=== PATIENT | male | born 1965 | race Caucasian/White ===

== ENCOUNTER 2019-04-05 13:47 | Outpatient (CLI) | payer BC, OTHER | END 2019-04-05 13:48 | disposition critical access hospital (66) | LOC: EMS 13:47 | PROVIDERS: ATTEND Surgery | DX: R55 Syncope and collapse (principal); R04.0 Epistaxis; R51 Headache; R42 Dizziness and giddiness | CPT/HCPCS: A0425; A0429 ==

== ENCOUNTER 2019-04-05 14:12 | Emergency (ER) | payer BC, OTHER ==
--- NOTE | 2019-04-05 14:22 | ED Physician Documentation ---
History of Present Illness - Stated complaint Stated Complaint: SYNCOPE - Additonal information Additional information: This is a 53-year-old male who has a history of pre-hypertension, who presents with an episode of syncope. Patient states that he had a nosebleed today, he oftentimes will get nosebleeds, but this 1 is more persistent than usual. It was going on for several hours. He was walking over the sink to blow his nose and he started to feel lightheaded. His is in the room and told him to come back towards her, on his way over he crumpled to his knees and then passed out for around 4 seconds. He did not hit his head, he sounds like he slowly lowered to the ground. He denies any chest pain, shortness of breath, dark or bloody stools, fever, numbness, or weakness. He takes no blood thinners. He denies headache or head trauma. Review of Systems Constitutional: denies: Fever Eyes: denies: Loss of vision Nose: reports: Epistaxis Cardiac: denies: Chest pain / pressure Respiratory: denies: Dyspnea GI: denies: Abdominal Pain, Vomiting : denies: Dysuria Musculoskeletal: denies: Neck pain Neurologic: reports: Syncope Immunocompromised: denies: Immunocompromised PD PAST MEDICAL HISTORY - Past Medical History Cardiovascular: Hypertension - Past Surgical History Past Surgical History: Yes General: Appendectomy Ortho: Shoulder arthroplasty - Present Medications Home Medications: Ambulatory Orders Medication Instructions Recorded Confirmed Methocarbamol [Robaxin] 500 mg PO Q6H PRN #25 tablet 05/16/15 Oxycodone HCl/Acetaminophen 1 each PO Q6H PRN #20 tablet 05/16/15 [Percocet 5-325 mg Tablet] RX: Ibuprofen 600 mg PO TID #20 tablet 05/16/15 - Allergies Allergies/Adverse Reactions: Allergies Allergy/AdvReac Type Severity Reaction Status Date / Time egg Allergy Unknown Verified 04/05/19 14:25 flu vaccine Allergy Unknown Uncoded 04/05/19 14:25 - Social History Does the pt smoke?: No Smoking Status: Never smoker Does the pt drink ETOH?: Yes Does the pt have substance abuse?: No - Immunizations Immunizations are current?: Yes PD ED PE NORMAL - Vitals Vital signs reviewed: Yes - General General: Alert and oriented X 3, No acute distress - HEENT HEENT: Other (There is some crusted blood in the bilateral nares. There is no active bleeding. 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 Intervals are within normal limits. There is left ventricular hypertrophy.) - Labs Labs: Laboratory Tests 04/05/19 04/05/19 04/05/19 14:49 14:49 14:49 WBC 12.1 H RBC 5.02 Hgb 15.6 Hct 44.9 MCV 89.4 MCH 31.1 H MCHC 34.7 RDW 12.6 Plt Count 244 MPV 10.6 Neut # (Auto) 9.1 H Lymph # (Auto) 1.9 [place] # (Auto) 0.9 Eos # (Auto) 0.1 Baso # (Auto) 0.1 Absolute Nucleated RBC 0.00 Nucleated RBC % 0.0 Sodium 142 Potassium 3.7 Chloride 111 Carbon Dioxide 21 Anion Gap 10.0 BUN 26 H Creatinine 1.3 H Estimated GFR (MDRD) 58 L Glucose 168 H Calcium 9.2 Total Bilirubin 0.9 AST 72 H ALT < 10 L Alkaline Phosphatase 65 Troponin I < 0.04 Troponin I High Sens 8.3 Total Protein 7.2 Albumin 3.8 Globulin 3.4 Albumin/Globulin Ratio 1.1 Lipase 28 PD MEDICAL DECISION MAKING - ED course Complexity details: considered differential (Arrhythmia, Anemia, electrolyte abnormality, dehydration, vasovagal episode, ACS) ED course: On arrival patient is well appearing with unremarkable vital signs. EKG shows LVH without convincing signs of ischemia or dysrhythmia. Patient was placed on the monitor. Labs were drawn and pt was given a 1L NS bolus. Labs are notable for normal hemoglobin, mildly elevated creatinine, mildly elevated AST. Pt denies alcohol use and has no abdominal pain. After the IV fluids patient is feeling well, is not lightheaded, and he has had no further epistaxis. He has not had dysrhytmia while in the ED, and his syncope after becoming lightheaded while having a nosebleed makes vagal episode highly likely, with likely dehydration as well. He is neurologically intact, and had no seizure activity witnessed. I discussed that he should follow with his PCP on his lab abnormalities and his possible LVH seen on EKG. I recommended fluid hydration and avoiding activities that could be dangerous with another episode of syncope. Return precautions discussed and patient was discharged home. Departure - Departure Disposition: 01 Home, Self Care Clinical Impression: Syncope Condition: Good Instructions: ED Fainting Unkn Cause Follow-Up: Your,PCP [Other] (As soon as possible, for follow up on fainting, slightly see vated AST, left ventricular hypertrophy seen on EKG) Comments: You were seen today because you fainted. Your blood counts look okay, but you do have a slight elevation of your AST liver enzyme, your creatinine (1.3), And your EKG suggests some heart enlargement. Please follow-up with your primary care provider soon as possible on these issues. If you have chest pain, s hortness of breath, or more episodes of passing out return to the emergency department. Discharge Date/Time: 04/05/19 16:32
[2019-04-05] MEDS ORDERED: SODIUM CHLORIDE 0.9% 1,000 ML IV STA (14:37)
[2019-04-05 14:55] LABS: BASOPHILS # (AUTO) 0.1 10^3/uL (0.0-0.1); BASOPHILS % (AUTO) 0.4 %; EOSINOPHILS # (AUTO) 0.1 10^3/uL (0.0-0.7); EOSINOPHILS % (AUTO) 1.2 %; HGB - HEMOGLOBIN 15.6 g/dL (14.0-18.0); LYMPHOCYTES # (AUTO) 1.9 10^3/uL (1.5-3.5); LYMPHOCYTES % (AUTO) 15.4 %; MEAN CORPUSCULAR HEMOGLOBIN 31.1 pg (27.0-31.0); MEAN CORPUSCULAR HGB CONC 34.7 g/dL (32.0-36.0); MEAN CORPUSCULAR VOLUME 89.4 fL (80.0-94.0); MEAN PLATELET VOLUME 10.6 fL (7.4-11.4); MONOCYTES # (AUTO) 0.9 10^3/uL (0.0-1.0); MONOCYTES % (AUTO) 7.6 %; NEUTROPHILS # (AUTO) 9.1 10^3/uL (1.5-6.6); NEUTROPHILS % (AUTO) 74.7 %; PLT - PLATELET COUNT 244 10^3/uL (130-450); RED BLOOD COUNT 5.02 10^6/uL (4.70-6.10); RED CELL DISTRIBUTION WIDTH 12.6 % (12.0-15.0); WHITE BLOOD COUNT 12.1 x10^3/uL (4.8-10.8)
--- NOTE | 2019-04-05 14:58 | XRAY Report ---
Reason: Chest Pain Procedure Date: 04/05/2019 Accession Number: [id number] / [id number] Procedure: XR - Chest 1 View X-Ray CPT Code: 19631 FULL RESULT: EXAM: CHEST RADIOGRAPHY EXAM DATE: 04/05/2019 02:48 PM. CLINICAL HISTORY: Chest Pain. COMPARISON: XR CHEST PA AND LAT 07/28/2010 6:49 PM. TECHNIQUE: 1 view. FINDINGS: Lungs/Pleura: There is mild left basilar atelectasis. No focal opacities evident. No pleural effusion. No pneumothorax. Mediastinum: Within exam limitations, the cardiomediastinal contour is normal. Other: None. IMPRESSION: No acute cardiopulmonary process. RADIA
[2019-04-05 15:10] LABS: ALBUMIN 3.8 g/dL (3.2-5.5); ALBUMIN/GLOBULIN RATIO 1.1 (1.0-2.2); ALKALINE PHOSPHATASE 65 IU/L (42-121); ALT ALANINE AMINOTRANSFERASE < 10 IU/L (10-60); AST ASPARTATE AMINOTRANSFERASE 72 IU/L (10-42); BILIRUBIN,TOTAL 0.9 mg/dL (0.2-1.0); BUN - BLOOD UREA NITROGEN 26 mg/dL (6-20); CALCIUM 9.2 mg/dL (8.5-10.3); CARBON DIOXIDE - CO2 21 mmol/L (21-32); CHLORIDE 111 mmol/L (101-111); CREATININE 1.3 mg/dL (0.6-1.2); GFR - MDRD 58 (>89); GLUCOSE 168 mg/dL (70-100); LIPASE 28 U/L (22-51); SODIUM 142 mmol/L (135-145); TOTAL PROTEIN 7.2 g/dL (6.7-8.2)
[2019-04-05 15:16] LABS: TROPONIN I < 0.04 ng/mL (<0.49)
[2019-04-05 16:13] VITALS: BP 148/88
== END 2019-04-05 16:32 | disposition home or self-care (01) ==
LOC: EDUNIT# → EDBD → ED 14:12
DX: R55 Syncope and collapse (principal); I10 Essential (primary) hypertension
CPT/HCPCS: 36415; 71045; 80053; 83690; 84484; 85025; 93005; 96360; 99284

== ENCOUNTER 2019-09-15 12:49 | Outpatient (CLI) | payer BC, OTHER ==
--- NOTE | 2019-09-15 13:39 | XRAY Report ---
Reason: DISLOCATION RIGHT SHOULDER, REDUCED Procedure Date: 09/15/2019 Accession Number: [id number] / [id number] Procedure: XR - Shoulder 3 View RT CPT Code: Final Report FULL RESULT: EXAM: RIGHT SHOULDER RADIOGRAPHY EXAM DATE: 09/15/2019 01:03 PM. CLINICAL HISTORY: DISLOCATION RIGHT SHOULDER, REDUCED. COMPARISON: CHEST 1 VIEW 04/05/2019 2:34 PM. TECHNIQUE: 3 views. FINDINGS: Bones: Normal. No fracture or bone lesion. Joints: The glenohumeral and acromioclavicular joints are normal. Soft tissues: The visualized hemithorax is unremarkable. No soft tissue swelling. IMPRESSION: Normal right shoulder radiography. RADIA
== END 2019-09-15 12:50 | disposition home or self-care (01) ==
LOC: DI 12:49
PROVIDERS: ATTEND Family Medicine
DX: M24.411 Recurrent dislocation, right shoulder (principal)

== ENCOUNTER 2019-10-19 23:59 | Emergency (ER) | payer BC, OTHER ==
[2019-10-20] MEDS ORDERED: ACETAMINOPHEN 325 MG TABLET PO STA ×2 (00:13)
--- NOTE | 2019-10-20 01:17 | ED Physician Documentation ---
History of Present Illness - Stated complaint Stated Complaint: COUGH/CHILLS - Chief complaint Chief Complaint: Fever - History obtained from History obtained from: Patient - History of Present Illness Timing: How many days ago (2) Improved by: nothing Worsened by: no exacerbating factors - Additonal information Additional information: c/o cough, fever, chills/diaphoresis x 2 days. cough is mostly nonproductive. Tmax at home over 103 Review of Systems Constitutional: reports: Fever, Chills, Myalgias, Sweats Ears: reports: Reviewed and negative Nose: reports: Reviewed and negative Throat: reports: Reviewed and negative Cardiac: reports: Reviewed and negative Respiratory: reports: Cough. denies: Dyspnea GI: reports: Reviewed and negative : denies: Dysuria, Frequency Musculoskeletal: denies: Back pain PD PAST MEDICAL HISTORY - Past Medical History Cardiovascular: Hypertension - Past Surgical History Past Surgical History: Yes General: Appendectomy Ortho: Shoulder arthroplasty - Present Medications Home Medications: Ambulatory Orders Medication Instructions Recorded Confirmed Ibuprofen 600 mg PO TID #20 tablet 05/16/15 Oxycodone HCl/Acetaminophen 1 each PO Q6H PRN #20 tablet 05/16/15 [Percocet 5-325 mg Tablet] methocarbamoL [Robaxin] 500 mg PO Q6H PRN #25 tablet 05/16/15 Oseltamivir [Tamiflu] 75 mg PO BID #9 capsule 10/20/19 - Allergies Allergies/Adverse Reactions: Allergies Allergy/AdvReac Type Severity Reaction Status Date / Time egg Allergy Unknown Verified 10/20/19 00:04 flu vaccine Allergy Unknown Uncoded 10/20/19 00:04 - Social History Does the pt smoke?: No Smoking Status: Never smoker Does the pt drink ETOH?: Yes Does the pt have substance abuse?: No - Immunizations Immunizations are current?: Yes - POLST Patient has POLST: No PD ED PE NORMAL - Vitals Vital signs reviewed: Yes - General General: Alert and oriented X 3, No acute distress, Well developed/nourished - HEENT HEENT: Moist mucous membranes, Pharynx benign - Neck Neck: Supple, no meningeal sign - Cardiac Cardiac: RRR, No murmur - Respiratory Respiratory: No respiratory distress, Clear bilaterally - Abdomen Abdomen: Soft, Non tender - Back Back: No CVA TTP Results - Vitals Vitals: Oxygen O2 Source Room air - Labs Labs: Laboratory Tests 10/20/19 00:18 Influenza A (Rapid) Negative Influenza B (Rapid) Negative - Rads (name of study) chest xray Radiology: Prelim report reviewed, See rad report PD MEDICAL DECISION MAKING - ED course Complexity details: reviewed results, re-evaluated patient, considered differential, d/w patient, d/w family ED course: normal cxr and no elements of HPI, ROS, or exam to suggest focus of infection nor serious infection such as meningitis, encephalitis, abscess. I suspect the influenza result is a false-negative. symptoms started within past 48 hours, and but otherwise does not meet higher-risk criteria, and this offered antiviral without particular recommendation. he would like to be started on this rx Departure - Departure Disposition: 01 Home, Self Care Clinical Impression: Influenza Condition: Good Instructions: ED Flu, Medication: Tamiflu (Oseltamivir) Prescriptions: Oseltamivir [Tamiflu] 75 mg PO BID #9 capsule Forms: Activity restrictions Discharge Date/Time: 10/20/19 02:34
[2019-10-20 01:21] VITALS: BP 171/102
--- NOTE | 2019-10-20 02:11 | XRAY Report ---
Reason: cough, dyspnea, fever Procedure Date: 10/20/2019 Accession Number: [id number] / [id number] Procedure: XR - Chest 2 View X-Ray CPT Code: 77438 Final Report FULL RESULT: EXAM: CHEST RADIOGRAPHY EXAM DATE: 10/20/2019 02:03 AM. CLINICAL HISTORY: Cough, dyspnea, fever. COMPARISON: CHEST 1 VIEW 04/05/2019 2:34 PM XR CHEST PA AND LAT 07/28/2010 6:49 PM. TECHNIQUE: 2 views. FINDINGS: The mediastinal and cardiac silhouettes are normal. The lungs are free of focal consolidation. There is no pleural effusion or pneumothorax. There is an L1 compression deformity which is of uncertain chronicity. IMPRESSION: No focal consolidation. L1 compression deformity of uncertain chronicity. RADIA
[2019-10-20] MEDS ORDERED: OSELTAMIVIR 75 MG CAPSULE PO STA (02:26)
== END 2019-10-20 02:34 | disposition home or self-care (01) ==
LOC: ED 23:59
DX: J11.1 Influenza due to unidentified influenza virus with other respiratory manifestations (principal); I10 Essential (primary) hypertension
CPT/HCPCS: 71046; 87275; 87276; 99283; 99284; A9270

== ENCOUNTER 2022-06-02 15:50 | Emergency (ER) | payer BC, OTHER ==
[2022-06-02] MEDS ORDERED: TRANEXAMIC ACID 1,000 MG/10 ML VIAL NAS STA (16:04)
--- NOTE | 2022-06-02 16:06 | ED Physician Documentation ---
History of Present Illness - Stated complaint Stated Complaint: NOSE BLEED - Chief complaint Chief Complaint: Heent - Additonal information Additional information: 56-year-old male presents to the emergency department for evaluation of bilat eral epistaxis. Symptoms began about 1 PM. He had simply gotten out of the shower and rubbed his nose. However over the last 2 days he has had shorter episodes of bilateral epistaxis that he has been able to control at home. Patient did require a visit to [facility] urgent care on for nasal bleeding. Despite using Afrin nasal spray and a clamp he continues to bleed heavily. He denies taking blood thinners. He has a history of hypertension only. However he has been taking Motrin and aspirin since October due to left knee pain. No recent falls or trauma. Review of Systems Constitutional: reports: Reviewed and negative Ears: reports: Reviewed and negative Nose: reports: Epistaxis Throat: reports: Reviewed and negative Cardiac: reports: Reviewed and negative Respiratory: reports: Reviewed and negative GI: reports: Reviewed and negative : reports: Reviewed and negative PD PAST MEDICAL HISTORY - Past Medical History Cardiovascular: Hypertension - Past Surgical History Past Surgical History: Yes General: Appendectomy Ortho: Shoulder arthroplasty - Present Medications Home Medications: Ambulatory Orders Medication Instructions Recorded Confirmed Ibuprofen 600 mg PO TID #20 tablet 05/16/15 Oxycodone HCl/Acetaminophen 1 each PO Q6H PRN #20 tablet 05/16/15 [Percocet 5-325 mg Tablet] methocarbamoL [Robaxin] 500 mg PO Q6H PRN #25 tablet 05/16/15 Oseltamivir [Tamiflu] 75 mg PO BID #9 capsule 10/20/19 - Allergies Allergies/Adverse Reactions: Allergies Allergy/AdvReac Type Severity Reaction Status Date / Time egg Allergy Unknown Verified 06/02/22 15:57 flu vaccine Allergy Unknown Uncoded 06/02/22 15:57 - Social History Does the pt smoke?: No Smoking Status: Never smoker Does the pt drink ETOH?: Yes Does the pt have substance abuse?: No - Immunizations Immunizations are current?: Yes - POLST Patient has POLST: No PD ED PE EXPANDED - General General: Alert, In distress - HEENT HEENT: Right nares epsitaxis, Left nares epistaxis, Other (Epistaxis and bright red blood present in both nares. Active bleeding seen in posterior OP despite pressure.) Results - Vitals Vitals: Vital Signs - 24 hr 06/02/22 15:55 Temperature 36 C L Heart Rate 118 H Respiratory 18 Rate Blood Pressure 146/101 H O2 Saturation 97 Oxygen O2 Source Room air - Labs Labs: Laboratory Tests 06/02/22 06/02/22 16:22 16:22 WBC 10.5 RBC 4.55 L Hgb 14.2 Hct 40.8 L MCV 89.7 MCH 31.2 H MCHC 34.8 RDW 13.2 Plt Count 252 MPV 10.7 Neut # (Auto) 6.6 Lymph # (Auto) 2.6 [place] # (Auto) 0.8 Eos # (Auto) 0.3 Baso # (Auto) 0.1 Absolute Nucleated RBC 0.00 Nucleated RBC % 0.0 Sodium 139 Potassium 3.8 Chloride 111 Carbon Dioxide 18 L Anion Gap 10.0 BUN 24 H Creatinine 1.5 H Estimated GFR (MDRD) 48 L Glucose 160 H Calcium 9.2 Procedures - Epistaxis Site: Both Preparation: Clots removed, Clamp / pressure applied Treatment: Other (Aerosolized nasal TXA. Followed by TXA acid soaked gauze pads and clamping for 30 minutes) Other: Observed - no bleeding, Pt tolerated well, O2 sat WNL PD MEDICAL DECISION MAKING - ED course Complexity details: reviewed results, considered differential, d/w patient, d/w family ED course: 56-year-old male presents emergency department for evaluation of bilateral epistaxis. This has been recurrent since . He has already had 1 urgent care visit to [facility] for this. He does report a longstanding history of nasal bleeds however. He also states he has broken his nose at least 3 times. We were able to successfully control the epistaxis using aerosolized nasal TXA followed by TXA Soaked gauze. Once the clamp was removed the patient was observed for at least 30 minutes with no further bleeding noted. We did obtain screening CBC that showed no worrisome anemia or thrombocytopenia. However we do need note of mildly elevated BUN and creatinine which seems to be creeping up over the last few years. This finding was discussed with patient and his daughter and he is advised close follow-up with his primary care provider. Emergent return precautions were discussed for failure symptoms to resolve or recurrence of the bleeding not stopped with clamping of the nose for 30 minutes at home. He is advised also that he likely needs referral to an ENT. Departure - Departure Disposition: 01 Home, Self Care Clinical Impression: Epistaxis, recurrent, Elevated serum creatinine Condition: Stable Record reviewed to determine appropriate education?: Yes Instructions: Nosebleed Comments: Isaac you are seen today in the emergency department because you developed a nosebleed that you could not get to stop at home. This has been your third occurrence over the last few days. At this point given your history of broken nose and recurrent nasal bleeds you would benefit from referral to an ear nose throat doctor. If the bleeding again occurs at home please attempt to soak the gauze pads in Afrin nasal spray and clamp your nose for 30 minutes. If doing this does not get the bleeding to stop then please return to the ER. At that point we would make the recommendation likely that you would need packing. We did draw a blood count which was normal today. However we also mary blood chemistry that shows a mildly elevated serum creatinine. This can be an indicator of kidney function. I encourage you to follow this closely with your primary care doctor. Your labs should be repeated this week. I do recommend that you stay well-hydrated. Please stop the use of the ibuprofen. And follow closely with your primary care doctor
[2022-06-02] MEDS ORDERED: BACITRACIN ZINC OINT 1 PACKET TOP STA (16:17)
[2022-06-02 16:31] LABS: BASOPHILS # (AUTO) 0.1 10^3/uL (0.0-0.1); BASOPHILS % (AUTO) 0.8 %; EOSINOPHILS # (AUTO) 0.3 10^3/uL (0.0-0.7); EOSINOPHILS % (AUTO) 2.8 %; HCT - HEMATOCRIT 40.8 % (42.0-52.0); HGB - HEMOGLOBIN 14.2 g/dL (14.0-18.0); LYMPHOCYTES # (AUTO) 2.6 10^3/uL (1.5-3.5); LYMPHOCYTES % (AUTO) 25.3 %; MEAN CORPUSCULAR HEMOGLOBIN 31.2 pg (27.0-31.0); MEAN CORPUSCULAR HGB CONC 34.8 g/dL (32.0-36.0); MEAN CORPUSCULAR VOLUME 89.7 fL (80.0-94.0); MEAN PLATELET VOLUME 10.7 fL (7.4-11.4); MONOCYTES # (AUTO) 0.8 10^3/uL (0.0-1.0); MONOCYTES % (AUTO) 7.5 %; NEUTROPHILS # (AUTO) 6.6 10^3/uL (1.5-6.6); NEUTROPHILS % (AUTO) 63.3 %; PLT - PLATELET COUNT 252 10^3/uL (130-450); RED BLOOD COUNT 4.55 10^6/uL (4.70-6.10); RED CELL DISTRIBUTION WIDTH 13.2 % (12.0-15.0); WHITE BLOOD COUNT 10.5 x10^3/uL (4.8-10.8)
[2022-06-02 16:40] LABS: CALCIUM 9.2 mg/dL (8.5-10.3); CREATININE 1.5 mg/dL (0.6-1.2); POTASSIUM 3.8 mmol/L (3.5-5.0)
[2022-06-02 17:19] VITALS: BP 143/93
== END 2022-06-02 17:18 | disposition home or self-care (01) ==
LOC: ED 15:50
DX: R04.0 Epistaxis (principal); R79.89 Other specified abnormal findings of blood chemistry; I10 Essential (primary) hypertension
CPT/HCPCS: 36415; 80048; 85025; 99283